=== PATIENT | female | born 1955 | race African-American/Black ===

== ENCOUNTER 2022-07-03 13:54 | Inpatient (IN) | payer MEDICARE, MEDICAID ==
[2022-07-03 20:13] LABS: Appearance,Urine Clear (Clear); Bilirubin,Urine Negative (Negative); Blood,Urine Trace (Negative); Color,Urine Light Yellow; Glucose,Urine (UA) Negative (Negative); Ketones,Urine Negative (Negative); Leukocyte Esterase,Urine Negative (Negative); Mucus,Urine Rare /hpf; Nitrite,Urine Negative (Negative); Protein,Urine Negative (Negative); RBC,Urine 1 /hpf (0-5); Specific Gravity,Urine 1.006 (1.001-1.035); Squamous Epithelial Cell,Urine <1 /hpf (0-4); Urobilinogen,Urine <2.0 mg/dL (<2.0); WBC,Urine 2 /hpf (0-5)
[2022-07-03 20:15] LABS: Acetaminophen <10.0 ug/mL; African American GFR (CKD) 90 (>60 ml/min/1.73 sqM); Alcohol <10 mg/dL; Anion Gap 9 mmol/L; Blood Urea Nitrogen 6 mg/dL (7-17); Calcium 9.5 mg/dL (8.4-10.2); Carbon Dioxide 28 mmol/L (22-30); Chloride 106 mmol/L (98-107); Glucose 99 mg/dL (74-99); Non-African American GFR(CKD) 78 (>60 ml/min/1.73 sqM); Potassium 3.8 mmol/L (3.5-5.1); Salicylate <1.0 mg/dL; Sodium 143 mmol/L (137-145)
[2022-07-03 20:23] LABS: Amphetamine Screen,Urine Not Detected (NotDetected); Barbiturate Screen,Urine Not Detected (NotDetected); Benzodiazepines Screen,Urine Not Detected (NotDetected); Cocaine Screen,Urine Not Detected (NotDetected); Methadone Screen, Urine Not Detected (NotDetected); Opiate Screen,Urine Not Detected (NotDetected); Oxycodone Screen, Urine Not Detected (NotDetected); Phencyclidine Screen,Urine Not Detected (NotDetected); Tricyclic Antidepressant,Urine Detected (NotDetected); Urn Cannabinoid Scrn Not Detected (NotDetected)
[2022-07-03 20:28] LABS: Basophils # (A) 0.1 k/uL (0-0.2); Basophils % (A) 1 %; Eosinophils # (A) 0.1 k/uL (0-0.7); Eosinophils % (A) 1 %; HCT 40.3 % (34.0-46.0); HGB 13.4 gm/dL (11.4-16.0); Lymphocytes # (A) 2.2 k/uL (1.0-4.8); Lymphocytes % (A) 27 %; MCH 30.5 pg (25.0-35.0); MCHC 33.2 g/dL (31.0-37.0); MCV 92.1 fL (80.0-100.0); Mean Platelet Volume 8.5; Monocytes # (A) 0.5 k/uL (0-1.0); Monocytes % (A) 7 %; Neutrophils % (A) 62 %; Platelet Count 307 k/uL (150-450); RBC 4.38 m/uL (3.80-5.40); RDW 13.1 % (11.5-15.5)
--- NOTE | 2022-07-03 21:51 | ED ---
Psych HPI - General Chief Complaint: Psychiatric Symptoms Stated Complaint: mental health Time Seen by Provider: 07/03/22 16:23 Source: family Mode of arrival: ambulatory - History of Present Illness Initial Comments: This 67-year-old demented female presents with daughter with the complaint of hallucinations. The patient lives with daughter. She apparently has declined over the past 5 weeks. She has been having some visual hallucinations. She's been quite agitated at home and destructive. Daughter states that this degree of abnormal behavior is quite out of context for her. She apparently was hospitalized for approximately 4 days at [facility] about a month ago. Her medications were adjusted but this did not help her symptomatology at all. She otherwise is healthy other than hypertension. She has no known physical complaints. Daughter denies any recent illnesses or fever. Patient does not give any degree of relevant history herself. History is therefore somewhat limited. No other complaints or modifying factors identified. - Related Data Home Medications Medication Instructions Recorded Confirmed Cholecalciferol [Vitamin D3 (25 50 mcg PO DAILY 07/03/22 07/03/22 Mcg = 1000 Iu)] Donepezil [Aricept] 10 mg PO DAILY 07/03/22 07/03/22 QUEtiapine [SEROquel] 50 mg PO BID 07/03/22 07/03/22 amLODIPine [Norvasc] 10 mg PO DAILY 07/03/22 07/03/22 atenoloL [Tenormin] 25 mg PO BID 07/03/22 07/03/22 Allergies Allergy/AdvReac Type Severity Reaction Status Date / Time No Known Allergies Allergy Verified 07/03/22 21:23 Review of Systems ROS Statement: Those systems with pertinent positive or pertinent negative responses have been documented in the HPI. ROS Other: All systems not noted in ROS Statement are negative. Past Medical History Past Medical History: Dementia, Hypertension History of Any Multi-Drug Resistant Organisms: None Reported Past Surgical History: No Surgical Hx Reported Past Psychological History: No Psychological Hx Reported Smoking Status: Former smoker Past Alcohol Use History: None Reported Past Drug Use History: None Reported General Exam - General Exam Comments Initial Comments: GENERAL: The patient is well nourished and well hydrated. VITAL SIGNS: Heart rate, blood pressure, respiratory rate reviewed as recorded in nurse's notes. EYES: Pupils are round and reactive. Extraocular movements are intact. No conjunctival / lid redness or swelling. ENT: No external evidence of injury, swelling, or ecchymosis. Airway is patent. Throat is clear. NECK: Nontender. No swelling or evidence of injury. No subcutaneous emphysema. Trachea is midline. No thyroid mass. HEART: Regular rate and rhythm. Good peripheral pulses. LUNGS/CHEST: Breath sounds clear and equal bilaterally. No rales, rhonchi, or wheezes. No ecchymosis, subcutaneous emphysema, or tenderness. ABDOMEN: Abdomen soft without tenderness. No palpable masses or organomegaly. No peritoneal signs. No abdominal wall swelling or ecchymosis. EXTREMITIES: No extremity tenderness. Normal muscle tone and function. No thoracolumbar tenderness. NEUROLOGIC: Sensation is grossly intact. Cranial nerve exam reveals face is symmetrical, tongue is midline, speech is clear. SKIN: No abrasions or ecchymosis is noted. No induration or masses noted. PSYCHIATRIC: Alert and pleasant, no acute psychiatric distress. Patient appears demented. Limitations: altered mental status Course Vital Signs 07/03/22 14:39 Temperature 98.4 F Pulse Rate 80 Respiratory 20 Rate Blood Pressure 125/68 O2 Sat by Pulse 100 Oximetry Medical Decision Making - Medical Decision Making The patient was seen and examined. All diagnostics are reviewed. No acute abnormalities were noted. The psychiatric screening labs. The exact cause of her symptomatology is not definitively determine but it is felt as though it likely is psychiatric in nature. The mental health consult is placed. Case is discussed with the psychiatric nurse and they would like to admit patient to the psychiatry unit for further treatment. They are requesting a covid 19 test and this is ordered. - Lab Data Result diagrams: 07/03/22 19:52 07/03/22 19:52 Lab Results 07/03/22 07/03/22 07/03/22 Range/Units 19:52 19:52 19:52 WBC 8.0 (3.8-10.6) k/uL RBC 4.38 (3.80-5.40) m/uL Hgb 13.4 (11.4-16.0) gm/dL Hct 40.3 (34.0-46.0) % MCV 92.1 (80.0-100.0) fL MCH 30.5 (25.0-35.0) pg MCHC 33.2 (31.0-37.0) g/dL RDW 13.1 (11.5-15.5) % Plt Count 307 (150-450) k/uL MPV 8.5 Neutrophils % 62 % Lymphocytes % 27 % Monocytes % 7 % Eosinophils % 1 % Basophils % 1 % Neutrophils # 5.0 (1.3-7.7) k/uL Lymphocytes # 2.2 (1.0-4.8) k/uL Monocytes # 0.5 (0-1.0) k/uL Eosinophils # 0.1 (0-0.7) k/uL Basophils # 0.1 (0-0.2) k/uL Sodium 143 (137-145) mmol/L Potassium 3.8 (3.5-5.1) mmol/L Chloride 106 (98-107) mmol/L Carbon Dioxide 28 (22-30) mmol/L Anion Gap 9 mmol/L BUN 6 L (7-17) mg/dL Creatinine 0.80 (0.52-1.04) mg/dL Est GFR (CKD-EPI)AfAm 90 (>60 ml/min/1.73 sqM) Est GFR (CKD-EPI)NonAf 78 (>60 ml/min/1.73 sqM) Glucose 99 (74-99) mg/dL Calcium 9.5 (8.4-10.2) mg/dL Urine Color Urine Appearance (Clear) Urine pH (5.0-8.0) Ur Specific [place] (1.001-1.035) Urine Protein (Negative) Urine Glucose (UA) (Negative) Urine Ketones (Negative) Urine Blood (Negative) Urine Nitrite (Negative) Urine Bilirubin (Negative) Urine Urobilinogen (<2.0) mg/dL Ur Leukocyte Esterase (Negative) Urine RBC (0-5) /hpf Urine WBC (0-5) /hpf Ur Squamous Epith Cells (0-4) /hpf Urine Mucus (None) /hpf Salicylates <1.0 mg/dL Urine Opiates Screen Not Detected (NotDetected) Ur Oxycodone Screen Not Detected (NotDetected) Urine Methadone Screen Not Detected (NotDetected) Ur Propoxyphene Screen Not Detected (NotDetected) Acetaminophen <10.0 ug/mL Ur Barbiturates Screen Not Detected (NotDetected) U Tricyclic Antidepress Detected H (NotDetected) Ur Phencyclidine Scrn Not Detected (NotDetected) Ur Amphetamines Screen Not Detected (NotDetected) U Methamphetamines Scrn Not Detected (NotDetected) U Benzodiazepines Scrn Not Detected (NotDetected) Urine Cocaine Screen Not Detected (NotDetected) U Marijuana (THC) Screen Not Detected (NotDetected) Serum Alcohol <10 mg/dL 07/03/22 Range/Units 19:52 WBC (3.8-10.6) k/uL RBC (3.80-5.40) m/uL Hgb (11.4-16.0) gm/dL Hct (34.0-46.0) % MCV (80.0-100.0) fL MCH (25.0-35.0) pg MCHC (31.0-37.0) g/dL RDW (11.5-15.5) % Plt Count (150-450) k/uL MPV Neutrophils % % Lymphocytes % % Monocytes % % Eosinophils % % Basophils % % Neutrophils # (1.3-7.7) k/uL Lymphocytes # (1.0-4.8) k/uL Monocytes # (0-1.0) k/uL Eosinophils # (0-0.7) k/uL Basophils # (0-0.2) k/uL Sodium (137-145) mmol/L Potassium (3.5-5.1) mmol/L Chloride (98-107) mmol/L Carbon Dioxide (22-30) mmol/L Anion Gap mmol/L BUN (7-17) mg/dL Creatinine (0.52-1.04) mg/dL Est GFR (CKD-EPI)AfAm (>60 ml/min/1.73 sqM) Est GFR (CKD-EPI)NonAf (>60 ml/min/1.73 sqM) Glucose (74-99) mg/dL Calcium (8.4-10.2) mg/dL Urine Color Light Yellow Urine Appearance Clear (Clear) Urine pH 5.0 (5.0-8.0) Ur Specific [place] 1.006 (1.001-1.035) Urine Protein Negative (Negative) Urine Glucose (UA) Negative (Negative) Urine Ketones Negative (Negative) Urine Blood Trace H (Negative) Urine Nitrite Negative (Negative) Urine Bilirubin Negative (Negative) Urine Urobilinogen <2.0 (<2.0) mg/dL Ur Leukocyte Esterase Negative (Negative) Urine RBC 1 (0-5) /hpf Urine WBC 2 (0-5) /hpf Ur Squamous Epith Cells <1 (0-4) /hpf Urine Mucus Rare H (None) /hpf Salicylates mg/dL Urine Opiates Screen (NotDetected) Ur Oxycodone Screen (NotDetected) Urine Methadone Screen (NotDetected) Ur Propoxyphene Screen (NotDetected) Acetaminophen ug/mL Ur Barbiturates Screen (NotDetected) U Tricyclic Antidepress (NotDetected) Ur Phencyclidine Scrn (NotDetected) Ur Amphetamines Screen (NotDetected) U Methamphetamines Scrn (NotDetected) U Benzodiazepines Scrn (NotDetected) Urine Cocaine Screen (NotDetected) U Marijuana (THC) Screen (NotDetected) Serum Alcohol mg/dL Disposition Clinical Impression: Auditory hallucinations, Dementia Disposition: ADMITTED IP TO [facility] Condition: Fair Is patient prescribed a controlled substance at d/c from ED?: No Referrals: Nonstaff,Physician [Primary Care Provider] - 1-2 days Time of Disposition: 21:51 Decision Date: 07/03/22 Decision Time: 21:51
[2022-07-03] MEDS ORDERED: MAG HYDROX/AL HYDROX/SIMETH 355 ML BOTTLE PO PRN (22:56)
[2022-07-03] MEDS ORDERED: flUPHENAZine 2.5 MG/ML (MDV) 10 ML VIAL IM PRN (22:59)
[2022-07-03] MEDS: QUEtiapine 50 MG TAB PO SCH (23:43)
[2022-07-04] MEDS ORDERED: OLANZapine 5 MG TAB PO STA (00:02)
[2022-07-04] MEDS ORDERED: OLANZapine 10 MG VIAL IM STA (00:02)
[2022-07-04] MEDS ORDERED: WATER FOR INJECTION, STERILE 10 ML IV ONE (00:08)
--- NOTE | 2022-07-04 00:56 | P.PN ---
Progress Note - Text Progress Note Date: 07/04/22 patient is sleeping and could not be seen at this time for medical evaluation
[2022-07-04] MEDS ORDERED: ZIPRASIDONE 20 MG VIAL IM STA ×2 (02:53→12:07)
[2022-07-04] MEDS: CHOLECALCIFEROL 25 MCG (1000 IU) TABLET PO SCH ×2 (08:55→08:59)
[2022-07-04] MEDS: amLODIPine 10 MG TAB PO SCH ×2 (08:56→08:59)
[2022-07-04] MEDS: atenoloL 50 MG TAB PO SCH ×3 (08:56→20:21)
[2022-07-04] MEDS: QUEtiapine 50 MG TAB PO SCH ×3 (08:56→20:21)
[2022-07-04] MEDS: DONEPEZIL 10 MG TAB PO SCH ×3 (08:56→11:49)
[2022-07-04] MEDS: QUEtiapine 25 MG TAB PO SCH ×2 (11:49→15:57)
[2022-07-04] MEDS ORDERED: OLANZapine 10 MG VIAL IM PRN (12:17)
--- NOTE | 2022-07-04 13:20 | P.HP ---
Psychiatric H&P - . H&P Date: 07/04/22 History & Physical: Allergies Allergy/AdvReac Type Severity Reaction Status Date / Time No Known Allergies Allergy Verified 07/03/22 21:23 Vital Signs Temp 97.0 F L 07/04/22 09:00 Pulse 77 07/04/22 09:00 Resp 16 07/04/22 09:00 BP 117/65 07/04/22 09:00 Pulse Ox 99 07/03/22 23:43 FiO2 Intake & Output 07/03/22 07/04/22 07/04/22 18:59 06:59 18:59 Weight 49.895 kg 48.704 kg Laboratory Last Values WBC 8.0 k/uL (3.8-10.6) 07/03/22 19:52 RBC 4.38 m/uL (3.80-5.40) 07/03/22 19:52 Hgb 13.4 gm/dL (11.4-16.0) 07/03/22 19:52 Hct 40.3 % (34.0-46.0) 07/03/22 19:52 MCV 92.1 fL (80.0-100.0) 07/03/22 19:52 MCH 30.5 pg (25.0-35.0) 07/03/22 19:52 MCHC 33.2 g/dL (31.0-37.0) 07/03/22 19:52 RDW 13.1 % (11.5-15.5) 07/03/22 19:52 Plt Count 307 k/uL (150-450) 07/03/22 19:52 MPV 8.5 07/03/22 19:52 Neutrophils % 62 % 07/03/22 19:52 Lymphocytes % 27 % 07/03/22 19:52 Monocytes % 7 % 07/03/22 19:52 Eosinophils % 1 % 07/03/22 19:52 Basophils % 1 % 07/03/22 19:52 Neutrophils # 5.0 k/uL (1.3-7.7) 07/03/22 19:52 Lymphocytes # 2.2 k/uL (1.0-4.8) 07/03/22 19:52 Monocytes # 0.5 k/uL (0-1.0) 07/03/22 19:52 Eosinophils # 0.1 k/uL (0-0.7) 07/03/22 19:52 Basophils # 0.1 k/uL (0-0.2) 07/03/22 19:52 Sodium 143 mmol/L (137-145) 07/03/22 19:52 Potassium 3.8 mmol/L (3.5-5.1) 07/03/22 19:52 Chloride 106 mmol/L (98-107) 07/03/22 19:52 Carbon Dioxide 28 mmol/L (22-30) 07/03/22 19:52 Anion Gap 9 mmol/L 07/03/22 19:52 BUN 6 mg/dL (7-17) L 07/03/22 19:52 Creatinine 0.80 mg/dL (0.52-1.04) 07/03/22 19:52 Est GFR (CKD-EPI)AfAm 90 (>60 ml/min/1.73 sqM) 07/03/22 19:52 Est GFR (CKD-EPI)NonAf 78 (>60 ml/min/1.73 sqM) 07/03/22 19:52 Glucose 99 mg/dL (74-99) 07/03/22 19:[address] Glu mg/dL 128 07/03/22 19:52 Hemoglobin A1c 6.1 % (0.0-6.0) H 07/03/22 19:52 Calcium 9.5 mg/dL (8.4-10.2) 07/03/22 19:52 TSH 1.780 mIU/L (0.465-4.680) 07/03/22 19:52 Urine Color Light Yellow 07/03/22 19:52 Urine Appearance Clear (Clear) 07/03/22 19:52 Urine pH 5.0 (5.0-8.0) 07/03/22 19:52 Ur Specific [place] 1.006 (1.001-1.035) 07/03/22 19:52 Urine Protein Negative (Negative) 07/03/22 19:52 Urine Glucose (UA) Negative (Negative) 07/03/22 19:52 Urine Ketones Negative (Negative) 07/03/22 19:52 Urine Blood Trace (Negative) H 07/03/22 19:52 Urine Nitrite Negative (Negative) 07/03/22 19:52 Urine Bilirubin Negative (Negative) 07/03/22 19:52 Urine Urobilinogen <2.0 mg/dL (<2.0) 07/03/22 19:52 Ur Leukocyte Esterase Negative (Negative) 07/03/22 19:52 Urine RBC 1 /hpf (0-5) 07/03/22 19:52 Urine WBC 2 /hpf (0-5) 07/03/22 19:52 Ur Squamous Epith Cells <1 /hpf (0-4) 07/03/22 19:52 Urine Mucus Rare /hpf (None) H 07/03/22 19:52 Salicylates <1.0 mg/dL 07/03/22 19:52 Urine Opiates Screen Not Detected (NotDetected) 07/03/22 19:52 Ur Oxycodone Screen Not Detected (NotDetected) 07/03/22 19:52 Urine Methadone Screen Not Detected (NotDetected) 07/03/22 19:52 Ur Propoxyphene Screen Not Detected (NotDetected) 07/03/22 19:52 Acetaminophen <10.0 ug/mL 07/03/22 19:52 Ur Barbiturates Screen Not Detected (NotDetected) 07/03/22 19:52 U Tricyclic Antidepress Detected (NotDetected) H 07/03/22 19:52 Ur Phencyclidine Scrn Not Detected (NotDetected) 07/03/22 19:52 Ur Amphetamines Screen Not Detected (NotDetected) 07/03/22 19:52 U Methamphetamines Scrn Not Detected (NotDetected) 07/03/22 19:52 U Benzodiazepines Scrn Not Detected (NotDetected) 07/03/22 19:52 Urine Cocaine Screen Not Detected (NotDetected) 07/03/22 19:52 U Marijuana (THC) Screen Not Detected (NotDetected) 07/03/22 19:52 Serum Alcohol <10 mg/dL 07/03/22 19:52 Coronavirus (PCR) Not Detected (Not Detectd) 07/03/22 21:59 07/04/22 13:19 07/04/22 13:19 IDENTIFYING DATA: Patient is a 67-year-old single, retired, -[place] female who presented to our hospital brought in by family for visual hallucinations. HPI: Patient presented to the hospital on 07/03/2022, brought in by her daughter with a chief complaint of hallucinations. Reportedly, the patient has been declining over the past 5 weeks. She was noted by her daughter to be quite agitated at home and at times destructive. The patient was hospitalized for approximately 4 days at [place] approximately a month ago and medications were adjusted however this did not help with her symptoms. The patient was also recently in a usp however was signed out AGAINST MEDICAL ADVICE by the patient's daughter who felt that the usp was inappropriate and not providing the care that the patient needed. The patient was diagnosed with major neurocognitive disorder in 2017. She was r ecently started on donepezil May 2022. As per EPS report, the patient was started on Seroquel and this was increased in order to address her insomnia and behavioral disturbances. However, this medication did not help and the patient has been displaying behavior such as yelling, cursing, and throwing objects since May. Reportedly, the patient has been hallucinating and seeing "a man or woman who thinks they are trying to take off her shoes, take her stuff, or trying to fight her." The patient was subsequently admitted on to the psychiatric unit. The patient is currently on one-to-one supervision for falls. Upon evaluation by this provider, the patient is very suspicious stating that everyone here is attempting to steal her money. She is currently alert and oriented to self o nly. She has been noted by this provider and by staff to attempt to disrobe while in the milieu. She has had intermittent episodes of agitation, crying, and yelling. The patient did require multiple IM medications yesterday in order to sleep. The patient has been noted to sleep very poorly. At baseline, the patient is noted to be able to bathe and care for her needs with her daughter assisting when necessary. The patient is a very poor historian at this time. PAST PSYCHIATRIC HISTORY: Patient has a history of dementia since 2018. The patient's home medications include Seroquel however patient's daughter reported that this medication was not beneficial. Unable to determine any previous psychiatric admissions. Unable to determine any other psychiatric history as the patient is a poor historian. PMH: Past Medical History: Dementia, Hypertension History of Any Multi-Drug Resistant Organisms: None Reported Past Surgical History: No Surgical Hx Reported Past Psychological History: No Psychological Hx Reported Smoking Status: Former smoker Past Alcohol Use History: None Reported Past Drug Use History: None Reported ALLERGIES: NO KNOWN DRUG ALLERGIES CHEMICAL DEPENDENCY HISTORY: As per chart review, the patient is to drink beers every day but has not had a beer in the past 3 months. No other substance use history could be ascertained. FAMILY PSYCHIATRIC/SUBSTANCE USE HISTORY: Unknown at this time. SOCIAL HISTORY: Patient reports that she is from [place]. Her guardian is her daughter Evelia. Patient lives with her daughter. MENTAL STATUS EXAM: General Appearance: Patient appears to be stated age is alert, however not directable or cooperative. Fair hygiene and grooming. Behavior: Patient is standing in the hallway. Eye contact is intense. Speech: Patient's speech is spontaneous, rapid in volume, and often loud. Mood/Affect: Patient reports their mood is "I want to go," affect is congruent and irritable Suicidality/Homicidality: Denies Perceptions: Denies Though content/process: [place]. Memory and concentration: Patient was alert and oriented to person only. Concentration is grossly poor. Judgment and insight: Poor STRENGTHS/WEAKNESSES: Strength is that the patient has a supportive daughter. Weakness is that the patient has very poor insight and judgment due to advanced dementia INTELLECT: average IMPRESSIONS: Major neurocognitive disorder with behavioral disturbances PLAN: -Patient is admitted under involuntary status to MHU for stabilization of psychiatric symptoms and safety. A second certification was completed and along with petition will be filed for court. -Medications : Increase Seroquel to 25 mg at 9 AM, 4 PM, and 50 mg at bedtime for dementia with behavioral disturbances. -Zyprexa PRN for agitation/aggression -Patient was unable to fully participate in the informed consent conversation due to her advanced dementia. -Internal Medicine consult to perform medical evaluation and physical. -SW on board for discharge planning. Encourage patient to participate in groups to work on coping skills. 07/04/22 13:19 07/04/22 13:19
[2022-07-04 13:56] VITALS: BMI 17.3
[2022-07-04] MEDS: MELATONIN 5 MG TABLET PO SCH (20:21)
[2022-07-04] MEDS ORDERED: MELATONIN 5 MG TABLET PO SCH (21:00)
--- NOTE | 2022-07-05 05:49 | P.PN ---
Progress Note - Text Progress Note Date: 07/05/22 patient starting yelling and refused evaluation by the medical doctor
[2022-07-05] MEDS: atenoloL 50 MG TAB PO SCH ×2 (08:55→20:57)
[2022-07-05] MEDS: DONEPEZIL 10 MG TAB PO SCH (08:55)
[2022-07-05] MEDS: QUEtiapine 25 MG TAB PO SCH ×2 (08:55→15:34)
[2022-07-05] MEDS: CHOLECALCIFEROL 25 MCG (1000 IU) TABLET PO SCH (08:55)
[2022-07-05] MEDS: amLODIPine 10 MG TAB PO SCH (08:56)
--- NOTE | 2022-07-05 11:16 | P.PN ---
Progress Note - Text Progress Note Date: 07/05/22 Interval History: Patient was seen in the common area accompanied by her 1-1 and was directable and agreeable to speak with this provider. Currently, the patient continues to be alert and oriented to self only. She believes she is in [place]. She however has been able to eat her meals and is noted by staff to be calmer and more cooperative. She has attended group. She did however try to eat a puzzle piece. Otherwise the patient has been taking her medications and reported no medical issues or concerns. She has been noted to sleep well. Mental Status Exam: General Appearance: Patient appears to be stated age is alert, mostly directable, and cooperative. Behavior: Patient is calmly seated without any agitated behavior. Eye contact is appropriate. Speech: Patient's speech is fluent and nonpressured. Nonspontaneous. Mood/Affect: Mood is improving mildly, affect is congruent and constricted. Suicidality/Homicidality: Patient denies having any suicidal or homicidal ideation intent or plan. Perceptions: Patient denies any visual hallucinations and denies any auditory hallucinations Though content/process: Confabulates. Linear in conversation. Memory and concentration: AOX1 - Self only. Concentration grossly intact but baseline poor. Judgment and insight: Poor at baseline. Vital Signs Temp 98.1 F 07/05/22 04:57 Pulse 59 L 07/05/22 04:57 Resp 18 07/05/22 04:57 BP 133/75 07/05/22 04:57 Pulse Ox 98 07/05/22 04:57 FiO2 Intake & Output 07/04/22 07/05/22 07/05/22 18:59 06:59 18:59 Weight 48.704 kg Laboratory Results - Last 24 Hours 07/03/22 07/03/22 19:52 19:52 Vitamin B12 395.0 Folate 6.60 Assessment Major neurocognitive disorder with behavioral disturbances Plan: -Patient continues to meet criteria for inpatient psychiatric admission for symptom stabilization and safety. Patient has been petitioned and certified. -Medications: Continue Seroquel 25 mg at 9 AM, 4 PM, and 50 mg at bedtime for dementia with behavioral disturbances. Melatonin 10 mg at bedtime for insomnia -When necessary Zyprexa for agitation/aggression. -SW on board for discharge planning. Encouraged the patient to participate in milieu.
[2022-07-05] MEDS ORDERED: OLANZapine 10 MG VIAL IM PRN (16:58)
[2022-07-05] MEDS: OLANZapine 5 MG TAB PO PRN (17:05)
[2022-07-05] MEDS: QUEtiapine 50 MG TAB PO SCH (20:57)
[2022-07-05] MEDS: MELATONIN 5 MG TABLET PO SCH (20:57)
[2022-07-06] MEDS: QUEtiapine 25 MG TAB PO STA ×2 (03:15→04:01)
[2022-07-06] MEDS: QUEtiapine 25 MG TAB PO SCH ×3 (08:18→20:59)
[2022-07-06] MEDS: CHOLECALCIFEROL 25 MCG (1000 IU) TABLET PO SCH (08:18)
[2022-07-06] MEDS: amLODIPine 10 MG TAB PO SCH (08:38)
[2022-07-06] MEDS: atenoloL 50 MG TAB PO SCH ×2 (08:38→21:00)
[2022-07-06] MEDS: DONEPEZIL 10 MG TAB PO SCH (08:59)
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
[2022-07-06] MEDS: OLANZapine 5 MG TAB PO PRN ×2 (16:30→21:00)
[2022-07-06] MEDS: MELATONIN 5 MG TABLET PO SCH (21:00)
--- NOTE | 2022-07-07 02:26 | P.PN ---
Progress Note - Text Progress Note Date: 07/07/22 The patient refused to be seen or be evaluated.
[2022-07-07] MEDS: CHOLECALCIFEROL 25 MCG (1000 IU) TABLET PO SCH (09:05)
[2022-07-07] MEDS: DONEPEZIL 10 MG TAB PO SCH (09:05)
[2022-07-07] MEDS: QUEtiapine 25 MG TAB PO SCH ×3 (09:05→20:07)
[2022-07-07] MEDS: atenoloL 50 MG TAB PO SCH ×2 (09:06→20:07)
[2022-07-07] MEDS: amLODIPine 10 MG TAB PO SCH (09:06)
[2022-07-07] MEDS: OLANZapine 5 MG TAB PO PRN ×2 (09:43→20:07)
--- NOTE | 2022-07-07 12:32 | P.PN ---
Progress Note - Text Progress Note Date: 07/07/22 Interval History: Patient was seen in the common area accompanied by her 1-1 and was directable and agreeable to speak with this provider. She is a poor historian with disorganized thoughts. Currently, the patient continues to be alert and oriented to self only. She believes she is in "towndown". After she had received Zyprexa yesterday, patient was calmer and more cooperative during the daytime. However, she appears to be more worried today. She keeps talking about "her "who is disturbing her and appears to be responding to internal stimuli. She states that "she" has been moving her toilet paper in the bathroom. She becomes irritable/agitated while discussing "her " and refers to her as "b". As a result, patient was given Zyprexa 5 mg by mouth this morning. Otherwise the patient has been taking her medications and reported no medical issues or concerns. She denies side effects to the medications and does not display any. Mental Status Exam: General Appearance: Patient appears to be stated age is alert, mostly directable, and cooperative. Behavior: Patient is pacing. Eye contact is fair. She is noted to be becoming restless when discussing "her" Speech: Patient's speech is fluent and nonpressured. Nonspontaneous. Mood/Affect: Mood is improving mildly but becomes irritable, affect is congruent and constricted. Suicidality/Homicidality: Patient denies having any suicidal or homicidal ideation intent or plan. Perceptions: Responding to internal stimuli Though content/process: Confabulates. Linear in conversation. Memory and concentration: AOX1 - Self only. Concentration grossly intact but baseline poor. Judgment and insight: Poor at baseline. AIMS = 1 Unable to draw a clock. Draws a [place] with a straight line next to it. When asked to write her name, just scribbles a straight vertical line. 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 Patient has been petitioned and certified. -Medications: Increase Seroquel to 50 mg at 9 AM, 25 mg at 4 PM, and 75 mg at bedtime for dementia with behavioral disturbances. Aricept 10 mg daily for dementia Melatonin 10 mg at bedtime for insomnia -When necessary Zyprexa for agitation/aggression. -SW on board for discharge planning. Encouraged the patient to participate in milieu.
[2022-07-07] MEDS ORDERED: QUEtiapine 25 MG TAB PO STA (14:47)
[2022-07-07] MEDS: ACETAMINOPHEN TAB 325 MG TAB PO PRN (17:06)
[2022-07-07] MEDS: MELATONIN 5 MG TABLET PO SCH (20:07)
[2022-07-08] MEDS: DONEPEZIL 10 MG TAB PO SCH (08:07)
[2022-07-08] MEDS: QUEtiapine 50 MG TAB PO SCH (08:08)
[2022-07-08] MEDS: atenoloL 50 MG TAB PO SCH ×2 (08:09→20:31)
[2022-07-08] MEDS: amLODIPine 10 MG TAB PO SCH (08:09)
[2022-07-08] MEDS: CHOLECALCIFEROL 25 MCG (1000 IU) TABLET PO SCH (08:10)
--- NOTE | 2022-07-08 11:43 | P.PN ---
Progress Note - Text Progress Note Date: 07/08/22 Interval History: Patient was seen in the common area accompanied by her 1-1 and was directable and agreeable to speak with this provider. The patient continues to be alert and oriented to self only. When asking her about what date it is today, the patient reports "I know what date it is not today." She continues to be observed by staff to respond to internal stimuli and often engaging in self talk. She has had intermittent episodes of agitation and irritability however has been redirectable. She has been able to care for hygiene and grooming and has been adherent with her medications. She reports no issues regarding her medical help to this provider. At times, the patient would be noted to speak to people that are not present and often referred to them as "bches." Mental Status Exam: General Appearance: Patient appears to be stated age is alert, mostly directable, and cooperative. Behavior: Patient is pacing. Eye contact is fair. Psychomotor activity appears normal. Patient puts on her socks and takes them off and put back on during the interview. Speech: Patient's speech is fluent and nonpressured. Nonspontaneous. Mood/Affect: Mood is improving mildly but becomes irritable, affect is congruent and constricted. Suicidality/Homicidality: Patient denies having any suicidal or homicidal ideation intent or plan. Perceptions: Responding to internal stimuli Though content/process: Confabulates. Linear in conversation. Memory and concentration: AOX1 - Self only. Concentration grossly intact but baseline poor. Judgment and insight: Poor at baseline. Vital Signs Temp 98.1 F 07/07/22 06:28 Pulse 52 L 07/08/22 08:10 Resp 14 07/07/22 06:28 BP 126/68 07/08/22 08:10 Pulse Ox 99 07/06/22 06:31 FiO2 Intake & Output 07/07/22 07/08/22 07/08/22 18:59 06:59 18:59 Weight 48.704 kg AIMS = 1 Unable to draw a clock. Draws a [place] with a straight line next to it. When asked to write her name, just scribbles a straight vertical line. 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 Patient has been petitioned and certified. Patient refused to defer mental health court. -Medications: Continue Seroquel 50 mg at 9 AM, 25 mg at 4 PM, and 75 mg at bedtime for dementia with behavioral disturbances. Aricept 10 mg daily for dementia Melatonin 10 mg at bedtime for insomnia -When necessary Zyprexa for agitation/aggression. -SW on board for discharge planning. Encouraged the patient to participate in milieu.
[2022-07-08] MEDS: QUEtiapine 25 MG TAB PO SCH ×2 (16:37→20:31)
[2022-07-08] MEDS: OLANZapine 5 MG TAB PO PRN (20:31)
[2022-07-08] MEDS: MELATONIN 5 MG TABLET PO SCH (20:31)
[2022-07-08] MEDS: MAG HYDROX/AL HYDROX/SIMETH 30 ML CUP PO PRN (21:14)
[2022-07-09] MEDS: amLODIPine 10 MG TAB PO SCH (08:28)
[2022-07-09] MEDS: CHOLECALCIFEROL 25 MCG (1000 IU) TABLET PO SCH (08:28)
[2022-07-09] MEDS: DONEPEZIL 10 MG TAB PO SCH (08:28)
[2022-07-09] MEDS: OLANZapine 5 MG TAB PO PRN ×3 (08:29→20:02)
[2022-07-09] MEDS: atenoloL 50 MG TAB PO SCH ×2 (08:29→20:02)
[2022-07-09] MEDS: QUEtiapine 50 MG TAB PO SCH (08:29)
--- NOTE | 2022-07-09 11:00 | P.PN ---
Progress Note - Text Progress Note Date: 07/09/22 Interval History: Patient was seen in her room, sleeping comfortably accompanied by her one-to-one supervisor frame sample and pattern. Currently, the patient has been noted to be cooperative and not engaging in any agitated or bizarre behaviors. She is quite somnolent at this time and the treatment team feels that it is more therapeutic to have her sleeping currently. She was reported to sleep well throughout the night. She was given when necessary Zyprexa last night after she was noted to be responding to internal stimuli stating "you nasty bitch", "she's always stealing, you ain't going to hurt me". Mental Status Exam: General Appearance: Patient appears to be stated age is alert, mostly directable, and cooperative. Somnolent and comfortably sleeping at this time. Behavior: Patient is calmly sleeping. Speech: Unable to assess. Mood/Affect: Unable to assess. Suicidality/Homicidality: Unable to assess. Perceptions: Unable to assess. Though content/process: Unable to assess. Memory and concentration: AOX1 - Self only. Concentration grossly intact but baseline poor. Judgment and insight: Poor at baseline. Vital Signs Temp 98.1 F 07/07/22 06:28 Pulse 52 L 07/08/22 08:10 Resp 14 07/07/22 06:28 BP 126/68 07/08/22 08:10 Pulse Ox 99 07/06/22 06:31 FiO2 Intake & Output 07/08/22 07/09/22 07/09/22 18:59 06:59 18:59 Weight 48.704 kg AIMS = 1 Unable to draw a clock. Draws a [place] with a straight line next to it. When asked to write her name, just scribbles a straight vertical line. 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 Patient has been petitioned and certified. Patient refused to defer mental health court. Court scheduled for 07/11/2022. -Medications: Continue Seroquel 50 mg at 9 AM, 25 mg at 4 PM, and 75 mg at bedtime for dementia with behavioral disturbances. Aricept 10 mg daily for dementia Melatonin 10 mg at bedtime for insomnia -When necessary Zyprexa for agitation/aggression. -SW on board for discharge planning. Encouraged the patient to participate in milieu.
[2022-07-09] MEDS: QUEtiapine 25 MG TAB PO SCH ×2 (16:05→20:02)
[2022-07-09] MEDS: MELATONIN 5 MG TABLET PO SCH (20:02)
[2022-07-10] MEDS: OLANZapine 5 MG TAB PO PRN ×2 (02:09→11:22)
--- NOTE | 2022-07-10 09:50 | P.PN ---
Progress Note - Text Progress Note Date: 07/10/22 Interval History: Patient was seen in her room, sleeping comfortably accompanied by her one-to-one tellers supervisor. Patient has been noted to have occasional episodes of paranoia and agitation. As per note from early this morning, "Pt has remained awake with intermittent periods of laying in her bed. She has pulled apart her pillow and the insides. Food provided. campus executive director with pt. She continues to accuse staff of stealing from her and calling the names." She continues to have intermittent episodes of agitation and calm. She has been directable and taking her medications and eating meals. She did require PRN for agitation last night. Mental Status Exam: General Appearance: Patient appears to be stated age is sleeping calmly. Somnolent and comfortably sleeping at this time. Behavior: Patient is calmly sleeping. Speech: Unable to assess. Mood/Affect: Unable to assess. Suicidality/Homicidality: Unable to assess. Perceptions: Unable to assess. Though content/process: Unable to assess. Memory and concentration: AOX1 - Self only. Concentration grossly intact but baseline poor. Judgment and insight: Poor at baseline. Vital Signs Temp 98.1 F 07/07/22 06:28 Pulse 52 L 07/08/22 08:10 Resp 14 07/07/22 06:28 BP 126/68 07/08/22 08:10 Pulse Ox 99 07/06/22 06:31 FiO2 AIMS = 1 Unable to draw a clock. Draws a [place] with a straight line next to it. When asked to write her name, just scribbles a straight vertical line. 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 Patient has been petitioned and certified. Patient refused to defer mental health court. Court scheduled for 07/11/2022. -Medications: Change Seroquel 50 mg at 9 AM and 75 mg at bedtime for dementia with behavioral disturbances. Concern for bradycardia. Start Remeron 7.5 mg at bedtime for sleep regulation and appetite. Aricept 10 mg daily for dementia Melatonin 10 mg at bedtime for insomnia -When necessary Zyprexa for agitation/aggression. -SW on board for discharge planning. Encouraged the patient to participate in milieu.
[2022-07-10] MEDS: amLODIPine 10 MG TAB PO SCH (11:22)
[2022-07-10] MEDS: CHOLECALCIFEROL 25 MCG (1000 IU) TABLET PO SCH (11:22)
[2022-07-10] MEDS: DONEPEZIL 10 MG TAB PO SCH (11:22)
[2022-07-10] MEDS: atenoloL 50 MG TAB PO SCH ×2 (11:23→20:44)
[2022-07-10] MEDS: QUEtiapine 50 MG TAB PO SCH (12:30)
[2022-07-10] MEDS: ACETAMINOPHEN TAB 325 MG TAB PO PRN (14:26)
[2022-07-10] MEDS ORDERED: QUEtiapine 50 MG TAB PO SCH (16:00)
[2022-07-10] MEDS: MAGNESIUM HYDROXIDE 2,400 MG/10 ML CUP PO PRN (17:18)
[2022-07-10] MEDS: MELATONIN 5 MG TABLET PO SCH (20:43)
[2022-07-10] MEDS: MIRTAZAPINE 15 MG TAB PO SCH (20:43)
[2022-07-10] MEDS ORDERED: QUEtiapine 25 MG TAB PO SCH ×2 (21:00)
[2022-07-11] MEDS: CHOLECALCIFEROL 25 MCG (1000 IU) TABLET PO SCH (08:19)
[2022-07-11] MEDS: amLODIPine 10 MG TAB PO SCH (08:19)
[2022-07-11] MEDS: DONEPEZIL 10 MG TAB PO SCH (08:20)
[2022-07-11] MEDS: atenoloL 50 MG TAB PO SCH ×2 (08:23→20:14)
[2022-07-11] MEDS ORDERED: QUEtiapine 50 MG TAB PO SCH (09:00)
[2022-07-11] MEDS: OLANZapine 5 MG TAB PO PRN (09:06)
--- NOTE | 2022-07-11 10:59 | P.PN ---
Progress Note - Text Progress Note Date: 07/11/22 Interval History: Patient was seen in her room, sleeping comfortably accompanied by her one-to-one steel post installer supervisor. Patient continues to be alert and oriented to self only. The patient was noted to be very agitated and defensive during court this morning. Her initial words in court were "you stupid a bi." She required much redirection. She has been noted to sleep. She has intermittent episodes of agitation, that particularly get worse around 3 PM. Her pulse has improved. History continues to be limited to the patient's presentation and severe dementia. Mental Status Exam: General Appearance: Patient appears to be stated age is alert, however not directable or cooperative. Behavior: Patient is initially, however noted to be agitated in the milieu and drinking court. Speech: Unable to assess. Mood/Affect: Unable to assess. Suicidality/Homicidality: Unable to assess. Perceptions: Unable to assess. Though content/process: Unable to assess. Memory and concentration: AOX1 - Self only. Concentration grossly intact but baseline poor. Judgment and insight: Poor at baseline. Vital Signs Temp 97.8 F 07/11/22 08:21 Pulse 60 07/11/22 08:21 Resp 18 07/11/22 08:21 BP 127/63 07/11/22 08:21 Pulse Ox 95 07/11/22 08:21 FiO2 Intake & Output 07/10/22 07/11/22 07/11/22 18:59 06:59 18:59 Weight 48.704 kg AIMS = 1 Unable to draw a clock. Draws a [place] with a straight line next to it. When asked to write her name, just scribbles a straight vertical line. 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 Patient has been petitioned and certified. Patient refused to defer mental health court. Patient is court ordered for medications and inpatient psychiatric hospitalization. -Medications: Increase Seroquel to 75 mg by mouth twice a day Continue Remeron 7.5 mg at bedtime for sleep regulation and appetite. Aricept 10 mg daily for dementia Melatonin 10 mg at bedtime for insomnia -When necessary Zyprexa for agitation/aggression. -SW on board for discharge planning. Encouraged the patient to participate in [email or web address].
[2022-07-11] MEDS: MAG HYDROX/AL HYDROX/SIMETH 30 ML CUP PO PRN (15:46)
[2022-07-11] MEDS: MIRTAZAPINE 15 MG TAB PO SCH (20:13)
[2022-07-11] MEDS: QUEtiapine 25 MG TAB PO SCH (20:14)
[2022-07-11] MEDS: MELATONIN 5 MG TABLET PO SCH (20:14)
[2022-07-12] MEDS: OLANZapine 5 MG TAB PO PRN (05:23)
[2022-07-12] MEDS: QUEtiapine 25 MG TAB PO SCH (08:25)
[2022-07-12] MEDS: DONEPEZIL 10 MG TAB PO SCH (08:25)
[2022-07-12] MEDS: CHOLECALCIFEROL 25 MCG (1000 IU) TABLET PO SCH (08:26)
[2022-07-12] MEDS: atenoloL 50 MG TAB PO SCH ×2 (08:26→19:34)
[2022-07-12] MEDS: amLODIPine 10 MG TAB PO SCH (08:26)
[2022-07-12] MEDS: MAGNESIUM HYDROXIDE 2,400 MG/10 ML CUP PO PRN (08:27)
--- NOTE | 2022-07-12 11:25 | P.PN ---
Progress Note - Text Progress Note Date: 07/12/22 Interval History: Patient was seen in her room, sleeping comfortably accompanied by her one-to-one adjustment supervisor. Patient continues to having intermittent episodes of agitation. As per staff, the patient did not sleep well last night. She did receive her morning dose Zyprexa and only then was she able to finally calmed down and sleep. She continues to respond to internal stimuli while attending individual and milieu activities. She often requires much redirection. The patient has also stopped ingesting her unsure shakes that she preferred to have her's as clear. Mental Status Exam: General Appearance: Patient appears to be stated age is currently resting in bed comfortably. Behavior: Patient is calmly resting in bed. Speech: Unable to assess. Mood/Affect: Unable to assess. Suicidality/Homicidality: Unable to assess. Perceptions: Unable to assess. Though content/process: Unable to assess. Memory and concentration: AOX1 - Self only. Concentration grossly intact but baseline poor. Judgment and insight: Poor at baseline. Vital Signs Temp 97.8 F 07/11/22 08:21 Pulse 60 07/11/22 08:21 Resp 18 07/11/22 08:21 BP 127/63 07/11/22 08:21 Pulse Ox 95 07/11/22 08:21 FiO2 Intake & Output 07/11/22 07/12/22 07/12/22 18:59 06:59 18:59 Weight 48.704 kg AIMS = 1 Unable to draw a clock. Draws a [place] with a straight line next to it. When asked to write her name, just scribbles a straight vertical line. 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 Patient has been petitioned and certified. Patient refused to defer mental health court. Patient is court ordered for medications and inpatient psychiatric hospitalization. -Medications: Discontinue Seroquel. We will change her regimen to Zyprexa 5 mg by mouth twice a day at 0900, 1400 and 7.5 mg daily at bedtime for mood Continue Remeron 7.5 mg at bedtime for sleep regulation and appetite. Aricept 10 mg daily for dementia Melatonin 10 mg at bedtime for insomnia -When necessary Zyprexa for agitation/aggression. -SW on board for discharge planning. Encouraged the patient to participate in milieu.
[2022-07-12] MEDS: OLANZapine 5 MG TAB PO SCH (13:25)
[2022-07-12] MEDS: MELATONIN 5 MG TABLET PO SCH (19:33)
[2022-07-12] MEDS: MIRTAZAPINE 15 MG TAB PO SCH (19:33)
[2022-07-12] MEDS: OLANZapine 7.5 MG TAB PO SCH (19:34)
[2022-07-13] MEDS: CHOLECALCIFEROL 25 MCG (1000 IU) TABLET PO SCH (08:39)
[2022-07-13] MEDS: amLODIPine 10 MG TAB PO SCH (08:39)
[2022-07-13] MEDS: DONEPEZIL 10 MG TAB PO SCH (08:40)
[2022-07-13] MEDS: atenoloL 50 MG TAB PO SCH ×2 (08:40→20:04)
[2022-07-13] MEDS: OLANZapine 5 MG TAB PO SCH ×2 (08:40→13:38)
[2022-07-13] MEDS: MELATONIN 5 MG TABLET PO SCH (20:03)
[2022-07-13] MEDS: OLANZapine 7.5 MG TAB PO SCH (20:04)
[2022-07-13] MEDS: MIRTAZAPINE 15 MG TAB PO SCH (20:04)
[2022-07-14] MEDS: atenoloL 50 MG TAB PO SCH ×2 (08:31→20:05)
[2022-07-14] MEDS: OLANZapine 5 MG TAB PO SCH ×2 (08:31→14:14)
[2022-07-14] MEDS: amLODIPine 10 MG TAB PO SCH (08:31)
[2022-07-14] MEDS: CHOLECALCIFEROL 25 MCG (1000 IU) TABLET PO SCH (08:31)
[2022-07-14] MEDS: DONEPEZIL 10 MG TAB PO SCH (08:31)
[2022-07-14] MEDS: MAGNESIUM HYDROXIDE 2,400 MG/10 ML CUP PO PRN (08:32)
[2022-07-14] MEDS: OLANZapine 5 MG TAB PO PRN (12:16)
[2022-07-14] MEDS: MAG HYDROX/AL HYDROX/SIMETH 30 ML CUP PO PRN (14:14)
--- NOTE | 2022-07-14 15:52 | PN ---
PROGRESS NOTE DATE OF SERVICE: 07/13/2022 CHIEF COMPLAINT: The patient was admitted for agitation and hallucinations. She has underlying diagnosis of advanced dementia. INTERVAL HISTORY: The patient has been doing fair. She appears to be at a baseline. She had a quiet day yesterday. She did receive Zyprexa 5 mg p.o. at 0530 yesterday for agitation. For the most part, she had a quiet day yesterday. She did attend two groups and seemed to manage fairly well in group. She slept fairly well last night. Today, she has been up. She spent some time in her room. She has attended the 11 o'clock group this morning. She was noted to be compliant, concrete, and interacting minimally with peers. She attended the full group. She did not have any significant behavioral difficulties. When I saw her, she was in her room. She continues on one to ones. She had made various comments about things, though it was not clear what she was talking about. She appeared to be tolerating her psychotropic medication well. MENTAL STATUS EXAM: Patient was somewhat restless. She gave fair eye contact, it was not clear. She acknowledged my presence even though we stood [id number]. She did make some random comments though her thought seemed disorganized. She tended to talk in a soft at times almost airy voice. Her affect was a little constricted though she smiled some. She had a quiet mood. She did not appear to be distressed or restless. She continues to show indications of responding to internal stimuli. I made no indications of thought of harm. She is oriented to self and surroundings. ASSESSMENT: I will continue the current diagnosis and treatment plan. Overall, according to staff report, she appears to be doing somewhat better overall. She has not had significant behavioral issues yesterday nor today. We will continue Remeron 7.5 mg at nightly and Zyprexa 5 mg b.i.d. and 7.5 mg nightly. We will need to work with her daughter in regard to discharge planning for possible referral. It is noted that the patient is on Aricept. Given her advanced dementia, Aricept does not have an indication and it may be a potential complication that could induce some of the difficult behaviors that the patient has had. It would be appropriate to consider discontinuing Aricept. We will focus on stabilization and discharge planning. MMODL / IJN: [id number] /
[2022-07-14] MEDS: MELATONIN 5 MG TABLET PO SCH (20:05)
[2022-07-14] MEDS: MIRTAZAPINE 15 MG TAB PO SCH (20:05)
[2022-07-14] MEDS: OLANZapine 7.5 MG TAB PO SCH (20:06)
[2022-07-15 03:17] VITALS: RESP 16
[2022-07-15] MEDS: OLANZapine 5 MG TAB PO PRN ×2 (03:17→12:58)
--- NOTE | 2022-07-15 03:18 | PN ---
PROGRESS NOTE DATE OF SERVICE: 07/14/2022 CHIEF COMPLAINT: The patient was admitted for agitation and visual hallucinations. She has a history of dementia. INTERVAL HISTORY: The patient has been doing fairly well. She had a quiet day yesterday. She spent most of the day in her room. She continues on one-to-one staffing. She did attend one group yesterday. She was quiet, though appropriate in the group. She will respond to staff, does not initiate much in terms of conversation or expressing any thoughts or concerns. Staff indicated yesterday that she seemed to be resting more comfortably. Today, she is doing about the same. Much in the morning, she has been in her room. She continues on one-to-one. When I talked to her she did not express any immediate concerns or complaints. I asked her how she was sleeping, she said poorly, which is not what staff had observed. She said her appetite was okay. Other than that she did not answer many other questions. She did not seem to indicate any problems or concerns with her psychotropic medications. MENTAL STATUS EXAM: The patient was in her room. She was standing and did move about a little bit. She gave fairly good eye contact. She responded to a few questions. She spoke in a soft monotone voice. She gave some answers that seemed disconnected. She answered directly to a few questions in an appropriate way. Her affect was blunted. She tended to have a staring gaze and did not show much emotional response 1 way or another. Her mood was reserved. She did not appear to be significantly distressed. It was difficult to assess for thought disorder. She made no indication of thoughts of harm. She was oriented to her immediate environment and circumstances. ASSESSMENT: I will continue current diagnosis and treatment plan. I will continue psychotropic medications the same. I encouraged the patient to let staff know or talk to me at any point if she has any questions or concerns. We will focus on stabilization and discharge planning. MMODL / IJN: [id number] /
[2022-07-15] MEDS: DONEPEZIL 10 MG TAB PO SCH (10:28)
[2022-07-15] MEDS: OLANZapine 5 MG TAB PO SCH ×2 (10:28→14:27)
[2022-07-15] MEDS: atenoloL 50 MG TAB PO SCH ×2 (10:29→20:06)
[2022-07-15] MEDS: amLODIPine 10 MG TAB PO SCH (10:29)
[2022-07-15] MEDS: CHOLECALCIFEROL 25 MCG (1000 IU) TABLET PO SCH (10:29)
[2022-07-15] MEDS: MIRTAZAPINE 15 MG TAB PO SCH (20:06)
[2022-07-15] MEDS: OLANZapine 7.5 MG TAB PO SCH (20:06)
[2022-07-15] MEDS: MELATONIN 5 MG TABLET PO SCH (20:06)
[2022-07-16] MEDS: OLANZapine 5 MG TAB PO PRN (01:27)
[2022-07-16 01:52] VITALS: TEMP 98
--- NOTE | 2022-07-16 01:52 | PN ---
PROGRESS NOTE DATE OF SERVICE: 07/15/2022 CHIEF COMPLAINT: The patient was admitted for agitation and visual hallucinations. She has a history of dementia. INTERVAL HISTORY: The patient appears to be at her baseline. She had a quiet day yesterday. Mostly, she stays in her room, though from time to time, she comes out and walks around the unit. She comes out for meals and has good appetite. She is not having any issues with ambulation. Though she is on Zyprexa, she is not showing any signs of EPS and in particular, does not show tremor, abnormal movements, or rigidity. She slept fair last night by staff report though she says she does not sleep much at all, though staff note that she has been doing better and getting rest both in the daytime as well as at night. Today, she continues the same. When I saw her, she was in her room. She was awake. She gave good eye contact and responded to questions with just 1 word responses. She had no specific complaints or concerns other than making a statement that she does not sleep at night. She only said that after I asked how she has been sleeping, she appears to tolerate her psychotropic medications. MENTAL STATUS EXAM: The patient gave good eye contact. She almost seemed to have a staring gaze. She answered questions with 1 or 2 word responses. Her affect was blunted. She did not show much emotional expression 1 way or another. Her mood was quiet. She did appear to be distressed. She was not restless in any way. There was no indication of thought disorder. There was no indication of thoughts of harm. She is oriented to her environment. ASSESSMENT: I will continue the current diagnosis and treatment plan. I will continue psychotropic medications the same. I had a telephone conversation with the patient's daughter/guardian. I discussed that we anticipate the patient being discharged in the next day or 2 as she seems to be stable and in a reasonable frame of mind to be out of the psychiatric unit. I indicated that Social Work would be coordinating with the daughter to make arrangements for discharge. I will order a BMP for the morning. We will focus on stabilization and discharge planning. MMKEVENL / RADHAN: [id number] /
[2022-07-16 08:09] LABS: Calcium 9.1 mg/dL (8.4-10.2); Potassium 5.2 mmol/L (3.5-5.1)
[2022-07-16] MEDS: amLODIPine 10 MG TAB PO SCH (08:55)
[2022-07-16] MEDS: atenoloL 50 MG TAB PO SCH (08:55)
[2022-07-16] MEDS: CHOLECALCIFEROL 25 MCG (1000 IU) TABLET PO SCH (08:56)
[2022-07-16] MEDS: OLANZapine 5 MG TAB PO SCH ×2 (08:56→13:26)
[2022-07-16] MEDS: DONEPEZIL 10 MG TAB PO SCH (08:56)
[2022-07-16 08:58] VITALS: BP 108/68; PULSE 66
[2022-07-16] MEDS: MAGNESIUM HYDROXIDE 2,400 MG/10 ML CUP PO PRN (11:27)
--- NOTE | 2022-07-16 11:45 | P.DS ---
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 Patient presented to the hospital on 07/03/2022, brought in by her daughter with a chief complaint of hallucinations. Reportedly, the patient has been declining over the past 5 weeks. She was noted by her daughter to be quite agitated at home and at times destructive. The patient was hospitalized for approximately 4 days at [facility] approximately a month ago and medications were adjusted however this did not help with her symptoms. The patient was also recently in a longterm however was signed out AGAINST MEDICAL ADVICE by the patient's daughter who felt that the longterm was inappropriate and not providing the care that the patient needed. The patient was diagnosed with major neurocognitive disorder in 2017. She was recently started on donepezil May 2022. As per EPS report, the patient was started on Seroquel and this was increased in order to address her insomnia and behavioral disturbances. However, this medication did not help and the patient has been displaying behavior such as yelling, cursing, and throwing objects since May. Reportedly, the patient has been hallucinating and seeing "a man or woman who thinks they are trying to take off her shoes, take her stuff, or trying to fight her." The patient was subsequently admitted on to the psychiatric unit. The patient is currently on one-to-one supervision for falls. Upon evaluation by this provider, the patient is very suspicious stating that everyone here is attempting to steal her money. She is currently alert and oriented to self only. She has been noted by this provider and by staff to attempt to disrobe while in the milieu. She has had intermittent episodes of agitation, crying, and yelling. The patient did require multiple IM medications yesterday in order to sleep. The patient has been noted to sleep very poorly. At baseline, the patient is noted to be able to bathe and care for her needs with her daughter assisting when necessary. The patient is a very poor historian at this time. Patient has a history of dementia since 2018. The patient's home medications include Seroquel however patient's daughter reported that this medication was not beneficial. Unable to determine any previous psychiatric admissions. Unable to determine any other psychiatric history as the patient is a poor historian. Hospital course: Upon admission to the unit patient was initially noted to be easily agitated, confused, and alert and oriented to self only. The patient also appeared to respond to internal stimuli. The patient was petitioned and subsequently certified. Diagnosis of major neurocognitive disorder with behavioral disturbances. Patient however intermittently adherent to her medications and eventually fully adherent. The patient was also placed on one-to-one supervision due to her risks for falls and impulsive behaviors. She was started on a regimen of Seroquel initially appeared to develop some bradycardia. Therefore, the patient is transitioned to Zyprexa which she tolerated much better. The patient was court ordered for mental health treatment on 07/11/2022. On her regimen of Zyprexa, the patient displayed gradual improvement in regards to her target symptoms of acute behaviors in response to internal stimuli. Remeron was added to her regimen in order to address poor appetite and insomnia. Melatonin was added in order to address circadian rhythm stabilization and insomnia. At baseline, the patient has very severe dementia and is alert and oriented to self only. Her prognosis is poor as dementia will gradually worsened over time. However, on the day of discharge, the patient is not presenting with any acute behaviors. She continues to be alert and oriented to self only. She has been eating and sleeping well. She reports no suicidal or homicidal ideation. She reports no auditory or visual hallucinations. She does not appear to respond to internal stimuli. She has been tolerating her medications well. The patient was also seen by medical team for history and physical examination during this admission. Her vital signs appear stable. Prior to discharge, family meeting was arranged by social and human services assistant to answer any questions and ensure safety. Mental status exam: General Appearance: Patient appears to be stated age is alert, pleasant, and cooperative. Patient is in no acute distress and has fair hygiene and grooming Behavior: Patient is calmly seated without any agitated behavior. Speech: Patient's speech is fluent and nonpressured. Mood/Affect: Patient reports their mood is "okay", affect is congruent and constricted. Mildly irritable. Suicidality/Homicidality: Patient denies having any suicidal or homicidal ideation intent or plan. Perceptions: Patient denies any auditory or visual hallucinations. Though content/process: There is no evidence of any delusional thought content and thought process is linear and goal-directed. Memory and concentration: Very poor at baseline secondary to advanced dementia Judgment and insight: Poor at baseline. Guarded prognosis. Impression: Major neurocognitive disorder with behavioral disturbances Plan: -Continue with discharge today as patient has improved and stabilized psychiatrically and is not currently an imminent threat to herself and/or others. Patient remain at chronically elevated risk due to dementia. Prognosis is guarded as dementia will gradually worsened over time. -Continue medications: Zyprexa 5 mg by mouth twice a day at 9 AM and 2 PM. Zyprexa 7.5 mg at bedtime. - For mood stabilization Aricept 10 mg by mouth daily for dementia Melatonin 10 mg by mouth at bedtime for insomnia and circadian rhythm stabilization Remeron 7.5 mg by mouth at bedtime for depression/anxiety/insomnia/appetite stimulation -Patient was counseled on the need for medication compliance and appropriate follow-up at mental health and also primary care for medical issues. Patient verbalized understanding and agreed. -Social work to arrange for and conduct family meeting to ensure safety upon discharge and answer any questions/concerns. Social work also to arrange for patients follow up appointments for psychiatric care along with follow up with primary care provider. -Patient's family was instructed to return the patient to the hospital or seek immediate medical care if their psychiatric or medical symptoms do worsen or reoccur. -Psychoeducation and supportive therapy provided to patient and family . Risks and benefits of pharmacological treatment versus the risks and benefits of nontreatment weight and discussed. Informed consent discussion held with family. Common side effects of psychotropics discussed such as, but not limited to headache, GI disturbance, sexual dysfunction, movement disorders, sedation, and orthostatic hypotension. Life threatening and blackbox warnings of prescribed medications also discussed. Potential risks of operating a vehicle or heavy machinery discussed with patient at length. Advised on importance of compliance and a reliable and responsible manner. Patient advised to review FDA consumer labeling of all medications prior to taking. Patient's family verbalized understanding of potential risks, and agrees with current treatment plan. Family advised to medically contact physician/emergency personnel if any acute changes in condition occur. Vital Signs Temp 98.0 F 07/16/22 01:51 Pulse 66 07/16/22 08:57 Resp 16 07/16/22 01:51 BP 108/68 07/16/22 08:57 Pulse Ox 97 07/16/22 01:51 FiO2 Intake & Output 07/15/22 07/16/22 07/16/22 18:59 06:59 18:59 Intake Total 200 Balance 200 Intake: Oral 200 Laboratory Results WBC 8.0 k/uL (3.8-10.6) 07/03/22 19:52 RBC 4.38 m/uL (3.80-5.40) 07/03/22 19:52 Hgb 13.4 gm/dL (11.4-16.0) 07/03/22 19:52 Hct 40.3 % (34.0-46.0) 07/03/22 19:52 MCV 92.1 fL (80.0-100.0) 07/03/22 19:52 MCH 30.5 pg (25.0-35.0) 07/03/22 19:52 MCHC 33.2 g/dL (31.0-37.0) 07/03/22 19:52 RDW 13.1 % (11.5-15.5) 07/03/22 19:52 Plt Count 307 k/uL (150-450) 07/03/22 19:52 MPV 8.5 07/03/22 19:52 Neutrophils % 62 % 07/03/22 19:52 Lymphocytes % 27 % 07/03/22 19:52 Monocytes % 7 % 07/03/22 19:52 Eosinophils % 1 % 07/03/22 19:52 Basophils % 1 % 07/03/22 19:52 Neutrophils # 5.0 k/uL (1.3-7.7) 07/03/22 19:52 Lymphocytes # 2.2 k/uL (1.0-4.8) 07/03/22 19:52 Monocytes # 0.5 k/uL (0-1.0) 07/03/22 19:52 Eosinophils # 0.1 k/uL (0-0.7) 07/03/22 19:52 Basophils # 0.1 k/uL (0-0.2) 07/03/22 19:52 Sodium 141 mmol/L (137-145) 07/16/22 07:17 Potassium 5.2 mmol/L (3.5-5.1) H 07/16/22 07:17 Chloride 107 mmol/L (98-107) 07/16/22 07:17 Carbon Dioxide 29 mmol/L (22-30) 07/16/22 07:17 Anion Gap 5 mmol/L 07/16/22 07:17 BUN 24 mg/dL (7-17) H 07/16/22 07:17 Creatinine 1.08 mg/dL (0.52-1.04) H 07/16/22 07:17 Est GFR (CKD-EPI)AfAm 62 (>60 ml/min/1.73 sqM) 07/16/22 07:17 Est GFR (CKD-EPI)NonAf 54 (>60 ml/min/1.73 sqM) 07/16/22 07:17 Glucose 99 mg/dL (74-99) 07/16/22 07:[address] Glu mg/dL 128 07/03/22 19:52 Hemoglobin A1c 6.1 % (0.0-6.0) H 07/03/22 19:52 Calcium 9.1 mg/dL (8.4-10.2) 07/16/22 07:17 Vitamin B12 395.0 pg/mL (200.0-944.0) 07/03/22 19:52 Folate 6.60 ng/mL (4.40-31.00) 07/03/22 19:52 TSH 1.780 mIU/L (0.465-4.680) 07/03/22 19:52 Urine Color Light Yellow 07/03/22 19:52 Urine Appearance Clear (Clear) 07/03/22 19:52 Urine pH 5.0 (5.0-8.0) 07/03/22 19:52 Ur Specific [place] 1.006 (1.001-1.035) 07/03/22 19:52 Urine Protein Negative (Negative) 07/03/22 19:52 Urine Glucose (UA) Negative (Negative) 07/03/22 19:52 Urine Ketones Negative (Negative) 07/03/22 19:52 Urine Blood Trace (Negative) H 07/03/22 19:52 Urine Nitrite Negative (Negative) 07/03/22 19:52 Urine Bilirubin Negative (Negative) 07/03/22 19:52 Urine Urobilinogen <2.0 mg/dL (<2.0) 07/03/22 19:52 Ur Leukocyte Esterase Negative (Negative) 07/03/22 19:52 Urine RBC 1 /hpf (0-5) 07/03/22 19:52 Urine WBC 2 /hpf (0-5) 07/03/22 19:52 Ur Squamous Epith Cells <1 /hpf (0-4) 07/03/22 19:52 Urine Mucus Rare /hpf (None) H 07/03/22 19:52 Salicylates <1.0 mg/dL 07/03/22 19:52 Urine Opiates Screen Not Detected (NotDetected) 07/03/22 19:52 Ur Oxycodone Screen Not Detected (NotDetected) 07/03/22 19:52 Urine Methadone Screen Not Detected (NotDetected) 07/03/22 19:52 Ur Propoxyphene Screen Not Detected (NotDetected) 07/03/22 19:52 Acetaminophen <10.0 ug/mL 07/03/22 19:52 Ur Barbiturates Screen Not Detected (NotDetected) 07/03/22 19:52 U Tricyclic Antidepress Detected (NotDetected) H 07/03/22 19:52 Ur Phencyclidine Scrn Not Detected (NotDetected) 07/03/22 19:52 Ur Amphetamines Screen Not Detected (NotDetected) 07/03/22 19:52 U Methamphetamines Scrn Not Detected (NotDetected) 07/03/22 19:52 U Benzodiazepines Scrn Not Detected (NotDetected) 07/03/22 19:52 Urine Cocaine Screen Not Detected (NotDetected) 07/03/22 19:52 U Marijuana (THC) Screen Not Detected (NotDetected) 07/03/22 19:52 Serum Alcohol <10 mg/dL 07/03/22 19:52 Coronavirus (PCR) Not Detected (Not Detectd) 07/03/22 21:59 Allergies Allergy/AdvReac Type Severity Reaction Status Date / Time No Known Allergies Allergy Verified 07/03/22 21:23 Patient Condition at Discharge: Stable Plan - Discharge Summary Discharge Rx Participant: No New Discharge Prescriptions: New Donepezil [Aricept] 10 mg PO DAILY 30 Days tab Melatonin 10 mg PO HS 30 Days tab Mirtazapine [Remeron] 7.5 mg PO HS 30 Days tab OLANZapine [ZyPREXA] 5 mg PO BID@0900,1400 30 Days tab OLANZapine [ZyPREXA] 7.5 mg PO HS 30 Days tab Continue amLODIPine [Norvasc] 10 mg PO DAILY atenoloL [Tenormin] 50 mg PO BID Cholecalciferol [Vitamin D3 (25 Mcg = 1000 Iu)] 50 mcg PO DAILY Discontinued QUEtiapine [SEROquel] 50 mg PO BID Donepezil [Aricept] 10 mg PO DAILY Discharge Medication List Cholecalciferol [Vitamin D3 (25 Mcg = 1000 Iu)] 50 mcg PO DAILY 07/03/22 [History] amLODIPine [Norvasc] 10 mg PO DAILY 07/03/22 [History] atenoloL [Tenormin] 50 mg PO BID 07/03/22 [History] Donepezil [Aricept] 10 mg PO DAILY 30 Days tab 07/16/22 [Rx] Melatonin 10 mg PO HS 30 Days tab 07/16/22 [Rx] Mirtazapine [Remeron] 7.5 mg PO HS 30 Days tab 07/16/22 [Rx] OLANZapine [ZyPREXA] 5 mg PO BID@0900,1400 30 Days tab 07/16/22 [Rx] OLANZapine [ZyPREXA] 7.5 mg PO HS 30 Days tab 07/16/22 [Rx] Follow up Appointment(s)/Referral(s): Linda Castaneda [Other] - 08/14/22 1:00 pm Nonstaff,Physician [Primary Care Provider] - 1-2 days Patient Instructions/Handouts: Dementia (ED), Hallucinations (DC) Activity/Diet/Wound Care/Special Instructions: Avoid the use of street drugs and alcohol. Take all prescriptions as prescribed. When you are in need of refills on your medications, please contact your medical provider and/or outpatient psychiatrist to have this done. Please go to scheduled outpatient appointment for aftercare treatment. If symptoms return or become worse, call the crisis line at and/or go to the nearest emergency room for evaluation Discharge Disposition: HOME SELF-CARE
== END 2022-07-16 17:35 | disposition home or self-care (01) | DRG 57 ==
LOC: EEVIPCON 13:54 → EC 13:54 → 3MHU 22:53
PROVIDERS: ADMIT Psychiatry & Neurology Psychiatry; ATTEND Psychiatry & Neurology Psychiatry
DX: G30.9 Alzheimer's disease, unspecified (principal); F06.71 Mild neurocognitive disorder due to known physiological condition with behavioral disturbance; Z20.822 Contact with and (suspected) exposure to COVID-19; F32.A Depression, unspecified; F41.9 Anxiety disorder, unspecified; G47.00 Insomnia, unspecified; I10 Essential (primary) hypertension; R00.1 Bradycardia, unspecified; T43.595A Adverse effect of other antipsychotics and neuroleptics, initial encounter; Z79.899 Other long term (current) drug therapy; Z87.891 Personal history of nicotine dependence
CPT/HCPCS: 36415; 80048; 80143; 80179; 80306; 80320; 81001; 82075; 82607; 82746; 83036; 84443; 85025; 87635; 99285